=== PATIENT | male | born 1955 | race Two or more races ===

== ENCOUNTER 2020-03-01 13:16 | Outpatient (CLI) | payer OTHER | END 2020-03-01 13:23 | disposition home or self-care (01) | LOC: SONOGRAMA 13:16 → MAMO-SONO 13:45 | PROVIDERS: ATTEND Specialist | DX: K40.90 Unilateral inguinal hernia, without obstruction or gangrene, not specified as recurrent (principal) ==

== ENCOUNTER 2020-04-17 07:52 | Outpatient (CLI) | payer OTHER | END 2020-04-17 08:07 | disposition home or self-care (01) | LOC: TOM 07:52 | PROVIDERS: ATTEND Specialist | DX: K40.90 Unilateral inguinal hernia, without obstruction or gangrene, not specified as recurrent (principal); K57.90 Diverticulosis of intestine, part unspecified, without perforation or abscess without bleeding; M51.26 Other intervertebral disc displacement, lumbar region ==